=== PATIENT | female | born 1940 | race Caucasian/White ===

== ENCOUNTER 2024-02-17 10:20 | Outpatient (CLI) | payer MEDICARE, OTHER ==
[2024-02-17 11:44] LABS: #Basophils 0.04 10x3/uL (0.0-0.2); %Basophils 0.6 % (0.0-1.0); %Eosinophils 3.4 % (0.0-10.0); %Lymphocytes 14.7 % (21.0-51.0); %Monocytes 9.2 % (0.0-10.0); %Neutrophils 71.9 % (42.0-75.0); Hematocrit 47.4 % (36.0-47.0); Hemoglobin 15.4 g/dL (12.0-16.0); Mean Corpuscular HGB CONC 32.5 g/dL (32.0-36.0); Mean Corpuscular Hemoglobin 31.8 pg (27.0-31.0); Mean Corpuscular Volume 97.9 fL (78.0-98.0); Mean Platelet Volume 10.7 fL (7.4-10.4); Platelet Count 141 10x3/uL (130-400); RBC Distribution Width 14.1 % (11.5-14.5); Red Blood Cell (RBC) Count 4.84 mill/uL (4.20-5.40)
[2024-02-17 12:15] LABS: INR-International Normal Ratio 1.6; Prothrombin Time 18.7 sec (12.0-14.7)
[2024-02-17 12:16] LABS: PTT 54.3 sec (22.9-36.1)
[2024-02-17 12:39] LABS: Anion Gap 18 mmol/L (10-20); BUN (Urea Nitrogen) 18 mg/dL (9.8-20.1); Calc. Creatinine Clearance 0 mL/min (70-130); Calcium 9.3 mg/dL (7.8-10.44); Carbon Dioxide 14 mmol/L (23-31); Chloride 114 mmol/L (98-107); Estimated GFR 53; Glucose 85 mg/dL (83-110); Sodium 142 mmol/L (136-145)
== END 2024-02-17 10:21 | disposition home or self-care (01) ==
LOC: LABBT 10:20
PROVIDERS: ATTEND Internal Medicine Cardiovascular Disease
DX: Z01.812 Encounter for preprocedural laboratory examination (principal); I48.11 Longstanding persistent atrial fibrillation; Z95.0 Presence of cardiac pacemaker
CPT/HCPCS: 80048; 85025; 85610; 85730

== ENCOUNTER 2024-03-02 12:36 | Outpatient (CLI) | payer MEDICARE, OTHER ==
[2024-03-02] MEDS ORDERED: Iopamidol 370 76% 100 ML VIAL ONE (12:46)
== END 2024-03-02 12:37 | disposition home or self-care (01) ==
LOC: CT 12:36
PROVIDERS: ATTEND Internal Medicine Cardiovascular Disease
DX: I48.11 Longstanding persistent atrial fibrillation (principal); R91.1 Solitary pulmonary nodule; J98.4 Other disorders of lung; Z95.0 Presence of cardiac pacemaker
CPT/HCPCS: 71275; Q9967